=== PATIENT | female | born 1955 | race Hispanic/Latino ===

== ENCOUNTER → 2022-01-23 | Outpatient (CLI) | payer OTHER ==
[~2022-01-23] VITALS: Ht 152.4 cm; Wt 78.9 kg
[~2022-01-23] MED LIST: REGADENOSON 0.4 MG/5 ML PF SYG IVP SCH
== END | disposition home or self-care (01) ==
LOC: SHCH 08:31
PROVIDERS: ATTEND Internal Medicine
DX: R06.09 Other forms of dyspnea (principal)
CPT/HCPCS: 78452; 96374; 93017; J2785; A9500 ×2

== ENCOUNTER → 2022-10-25 | Outpatient (CLI) | payer OTHER | END | disposition home or self-care (01) | LOC: SLP 20:20 | PROVIDERS: ATTEND Student in an Organized Health Care Education/Training Program | DX: G47.33 Obstructive sleep apnea (adult) (pediatric) (principal) | CPT/HCPCS: 95810; 95811 ==

== ENCOUNTER → 2023-08-04 | Outpatient (CLI) | payer OTHER | END | disposition home or self-care (01) | LOC: SHCH 14:08 | PROVIDERS: ATTEND Student in an Organized Health Care Education/Training Program | DX: I73.9 Peripheral vascular disease, unspecified (principal) | CPT/HCPCS: 93925 ==

== ENCOUNTER → 2024-05-08 | Outpatient (CLI) | payer OTHER ==
[2024-05-08 12:25] LABS: HEMOGLOBIN A1C 7.7 % (4.0-6.0)
[2024-05-08 12:30] LABS: ALBUMIN 3.1 g/dL (3.5-5.0); BILIRUBIN,TOTAL 0.3 mg/dL (0.2-1.0); CREATININE 7.2 mg/dL (0.5-1.0); POTASSIUM 5.6 mmol/L (3.5-5.1); TOTAL PROTEIN, SERUM 7.4 g/dL (6.0-8.3)
== END | disposition home or self-care (01) ==
LOC: LAB 08:43
PROVIDERS: ATTEND Student in an Organized Health Care Education/Training Program
DX: I11.9 Hypertensive heart disease without heart failure (principal); E78.5 Hyperlipidemia, unspecified; Z79.899 Other long term (current) drug therapy
CPT/HCPCS: 36415; 80053; 80061; 83036

== ENCOUNTER 2025-03-02 21:01 | Emergency (ER) | payer OTHER ==
[~2025-03-02] VITALS: Ht 152.4 cm; Wt 68.5 kg
[~2025-03-02 21:01] MED LIST changes: +AMLO-258 PO; +CEFD300C3 PO; +Calcitriol 0.25MCG Cap PO; +FURO40SO4 PO; +Folic Acid/Vitamin B Comp W-C PO; +METF-444 PO; +METO-391 PO; -REGADENOSON 0.4 MG/5 ML PF SYG IVP SCH; +sevELAMer HCL 800 MG TAB PO
[2025-03-02 21:04] VITALS: TEMP 98.3
[2025-03-02 21:29] LABS: IMMATURE GRANULOCYTE ABSOLUTE 0.02 K/uL (0-1); NUCLEATED RED BLOOD CELLS 0.0 % (0.0-0.19); PLATELET COUNT (AUTO) 180 K/uL (130-400); RED BLOOD CELL COUNT(AUTO) 3.96 MIL/uL (4.00-5.50); RED CELL DISTRIBUTION WIDTH 14.6 % (11.0-15.5); WHITE BLOOD COUNT (AUTO) 6.9 K/uL (4.8-10.8)
--- NOTE | 2025-03-02 21:36 | ERN ---
ED Note History of Present Illness Stated Complaint: C/O DIZZINESS,WEAKNESS, BACK PAIN Chief Complaint: Dizzy/Light Headed Time Seen by MD: 21:12 Time Seen by Midlevel: 21:13 Dictation: 69-year-old female presents to the emergency department due to call us having generalized body weakness that began today at 4:40 p.m.. She states that this occurred while she was being connected for her dialysis. At this time, she denies having any chest pain, chest pressure, changes in vision, headache, na usea or vomiting. Patient states that it is a difficult sensation to explain. She states that it almost feels like if she feels anxious but denies having any history of anxiety. Upon initial evaluation, the patient presents with a normal neurological examination. Allergies: Coded Allergies: No Known Allergies (Verified Allergy, Unknown, 01/20/22) Emergency Care GRAB DRIVER: None Home Meds Active Scripts Cefdinir (Cefdinir) 300 Mg Capsule, 1 CAP PO BID for 5 Days, #10 CAP 0 Refills Prov:ALEJANDRA RODRIGEZ NP 12/24/24 Metformin HCl (Metformin HCl) 500 Mg Tablet, 1 TAB PO BID for 30 Days, #60 TAB 0 Refills Prov:ALEJANDRA RODRIGEZ NP 12/24/24 [sevELAMer HCL 800 MG TAB] 800 MG/TAB TABLET No Conflict Check, 1600 MG PO TIDMEALS for 30 Days, #90 MG 0 Refills Prov:ALEJANDRA RODRIGEZ NP 12/24/24 [Folic Acid/Vitamin B Comp W-C] 1 CAP TAB No Conflict Check, 1 CAP PO DAILY for 30 Days, #30 TAB 0 Refills Prov:ALEJANDRA RODRIGEZ NP 12/24/24 [Calcitriol 0.25MCG Cap] 0.25 MCG CAPSULE No Conflict Check, 0.25 MCG PO DAILY for 30 Days, #30 MCG 0 Refills Prov:ALEJANDRA RODRIGEZ NP 12/24/24 Reported Medications Furosemide (Furosemide) 40 Mg/4 Ml Solution, 40 MG PO DAILY, ML 12/15/24 Amlodipine Besylate (Amlodipine Besylate) 10 Mg Tablet, 10 MG PO DAILY for 30 Days, #30 TAB 0 Refills 12/15/24 Metoprolol Succinate (Metoprolol Succinate) 50 Mg Tab.er.24h, 50 MG PO DAILY, TAB 12/15/24 Past Medical History Past Medical History: Diabetes-Type II, High Cholesterol, Hypertension, Renal Failure Surgical History: Cholecystectomy, PSYCH History: no pertinent psych hx History: Not Applicable RN Note Reviewed/Agreed w/PFSH: Yes Review of System Dictation Neuro: Generalized weakness Psych: Anxious Initial Vital Sign VS Vital Signs Date Time Temp Pulse Resp B/P (MAP) Pulse Ox O2 Delivery O2 Flow Rate FiO2 03/02/25 21:04 98.2 60 20 181/53 98 Room Air Physical Exam Dictation General: awake, alert, NAD Head/Face: Normocephalic, atraumatic Eyes: PERRL, EOMI ENT: Oral mucosa moist Neck: Trachea midline, supple Cardiovascular: RRR, no edema Respiratory: Symmetrical, non-labored Abdomen: Soft, non-tender, non-distended, no guarding. Skin: Warm, dry, good turgor, no rash MS/Extremity: Pulses equal, no cyanosis, neurovascular intact, FROM Neuro: COAx4, GCS 15, steady gait, Psych: Normal behavior, mood, and affect normal Results (Laboratory/Radiology) Laboratory/Radiology Laboratory Tests Test 03/02/25 21:22 White Blood Count 6.9 K/uL (4.8-10.8) Red Blood Count 3.96 MIL/uL (4.00-5.50) L Hemoglobin 11.4 g/dL (12.0-16.0) L Hematocrit 34.4 % (36-48) L Mean Corpuscular Volume 86.9 fL (79-99) Mean Corpuscular Hemoglobin 28.8 pg (27.0-33.0) Mean Corpuscular Hemoglobin Concent 33.1 g/dL (32.0-36.0) Red Cell Distribution Width 14.6 % (11.0-15.5) Platelet Count 180 K/uL (130-400) Mean Platelet Volume 11.2 fL (7.5-10.5) H Immature Granulocyte % (Auto) 0.3 % (0-1) Neutrophils (%) (Auto) 58.4 % (40.0-77.0) Lymphocytes (%) (Auto) 32.6 % (21.0-51.0) Monocytes (%) (Auto) 5.2 % (3.0-13.0) Eosinophils (%) (Auto) 2.8 % (0.0-8.0) Basophils (%) (Auto) 0.7 % (0.0-5.0) Neutrophils # (Auto) 4.0 K/uL (1.8-7.7) Lymphocytes # (Auto) 2.2 K/uL (1.0-4.8) Monocytes # (Auto) 0.4 K/uL (0.1-1.0) Eosinophils # (Auto) 0.19 K/uL (0.00-0.70) Basophils # (Auto) 0.05 K/uL (0.00-0.20) Absolute Immature Granulocyte (auto 0.02 K/uL (0-1) Nucleated Red Blood Cells 0.0 % (0.0-0.19) Sodium Level 136 mmol/L (136-145) Potassium Level 3.7 mmol/L (3.5-5.1) Chloride Level 95 mmol/L (101-111) L Carbon Dioxide Level 31 mmol/L (21-32) Blood Urea Nitrogen 29 mg/dL (7-18) H Creatinine 3.6 mg/dL (0.5-1.0) H Glomerular Filtration Rate Calc 13 mL/min (>90) Random Glucose 168 mg/dL (70-105) H Total Calcium 9.2 mg/dL (8.5-10.1) Total Bilirubin 0.4 mg/dL (0.2-1.0) Aspartate Amino Transf (AST/SGOT) 15 U/L (10-37) Alanine Aminotransferase (ALT/SGPT) 22 U/L (12-78) Alkaline Phosphatase 104 U/L (50-136) Troponin I High Sensitivity 65 ng/L (4-50) *H Total Protein 7.5 g/dL (6.0-8.3) Albumin 3.6 g/dL (3.5-5.0) Labs Reviewed?: Yes EKG: (+) NSR EKG Comment: EKG done 03/02/2025 at 9:10 p.m.. Ventricular rate 62 beats per minute SD 161 MS QRS 94 MS QT 460 MS No STEMI. ED Course ED Course Orders Procedure Category Date Status Time 12 Lead Ekg Tracing- EKG 03/02/25 Logged Technical 21:13 Troponin I High LAB 03/02/25 Complete Sensitivity 21:12 Cbc With Differential LAB 03/02/25 Complete 21:12 Comprehensive LAB 03/02/25 Complete Metabolic Panel 21:12 Urinalysis Profile LAB 03/02/25 Logged 21:12 12 Lead Ekg Tracing- EKG 03/02/25 Logged Technical 21:12 Chest 1vw RAD 03/02/25 Taken 21:12 Hydroxyzine 25mg Tab PHA 03/02/25 In Process (Atarax 25mg Tab) 22:30 Current Medications Medications (Trade) Dose Ordered Sig/Shanika Route PRN Reason Start Time Stop Time Status Last Admin Dose Admin Hydroxyzine HCl (ATArax 25MG TAB) 25 mg ONCE ONCE PO 03/02/25 22:30 03/02/25 22:31 Vital Signs Date Time Temp Pulse Resp B/P (MAP) Pulse Ox O2 Delivery O2 Flow Rate FiO2 03/02/25 21:04 98.2 60 20 181/53 98 Room Air Medical Decision Making MDM MDM: Differential diagnosis: Generalized weakness, electrolyte imbalance, anxiety reaction. Rationale: Tests considered and ordered secondary to shared decision making include: Previous outside records reviewed: Old ER visits. Risk of complication and/or morbidity or mortality of patient management: None Medications-Per medication reconciliation Need for hospitalization: Patient does not meet criteria for hospitalization. Need for emergency major/minor surgery: No There are no social concerns with this patient. Prescription drug management Prescriptions will include symptomatic care Patient's prior external medical records from other ER visits were reviewed by me as indicated. Prior testing and results from previous visits were reviewed. Prior tests were taken into account with medical decision making and resource utilization, independent historian/historians were used to obtain complete medical history. I independently interpreted the test that were performed, results were reviewed by me and considered findings on radiology if ordered. Medical management and examination interpretation discussions were had by me with other qualified healthcare professionals as indicated for the patient's care. DX & DISP Disposition: Discharge Departure Impression: Primary Impression: Generalized weakness Additional Impression: Anxiety reaction Condition: Stable Referrals: BOBO TO JR, MD (PCP) Time of Disposition: 22:30 GALA GOLDBERG Mar 02, 2025 21:36
[2025-03-02 21:46] LABS: CREATININE 3.6 mg/dL (0.5-1.0); GLOMERULAR FILTR. RATE CALC 13.0 mL/min (>90); GLUCOSE,RANDOM 168.0 mg/dL (70-105); SODIUM SERUM 136.0 mmol/L (136-145); UREA NITROGEN, BLOOD 29.0 mg/dL (7-18)
[2025-03-02 21:50] LABS: ASPARTATE AMINOTRANSFERASE 15.0 U/L (10-37); TOTAL PROTEIN, SERUM 7.5 g/dL (6.0-8.3)
--- NOTE | 2025-03-02 22:53 | HMCIMG ---
EXAM: XR Chest, 1 AP View. CLINICAL HISTORY: 73-year-old female with shortness of breath. COMPARISON: XR chest dated 06/20/2024. FINDINGS: LUNGS: The lungs are clear. No consolidation. PLEURAL SPACES: No pleural effusion or pneumothorax. HEART: There is cardiomegaly. BONES: No acute osseous abnormality. MEDIASTINUM: There is suggestion of a continuous mediastinal sign. Consider a CT chest and abdomen for further workup if clinically indicated. IMPRESSION: 1. Suggestion of a continuous mediastinal sign, can be an indication of pneumomediastinum. Consider a CT chest and abdomen for further workup if clinically indicated. 2. Cardiomegaly, similar to prior XR chest dated 06/20/2024, 08:39 am. /[place]
--- NOTE | 2025-03-02 23:29 | NUR ---
PATIENT AT CT SCAN AT THIS TIME.
[2025-03-03 00:29] VITALS: BP 169/62; PULSE 58; RESP 18; O2SAT 99
--- NOTE | 2025-03-03 00:33 | HMCIMG ---
1. EXAM: CT Chest without IV contrast. CLINICAL HISTORY: Pain. TECHNIQUE: Thin-section axial CT through the thorax without intravenous contrast. Coronal, sagittal, and MIP reformation were generated on the same workstation. CT scan done according to ALARA (As Low as Reasonably Achievable). CONTRAST USED: None. COMPARISON: None provided. FINDINGS: 0.6 cm focal ground glass density nodule in the right lower lobe of the lung. Mild subsegmental atelectasis in the left lingula. The remaining lung chin are clear. No pleural effusion or pneumothorax. No pericardial effusion. Mild cardiomegaly. Scattered atherosclerotic wall calcifications in the thoracic aorta and coronary arteries. Right-sided central venous catheter in place with tip in the right atrium. Tracheal wall calcifications. No axillary, supraclavicular, or mediastinal lymphadenopathy. No focal thyroid abnormality. No acute or suspicious osseous abnormality. IMPRESSION: No acute process in the chest. 0.6 cm ground glass density nodule in the right lower lobe of the lung. Recommended follow-up CT chest at 12 months. 2. EXAM: CT Abdomen without IV contrast CLINICAL HISTORY: Pain. TECHNIQUE: Thin collimated axial CT images of the abdomen were obtained, with sagittal and coronal reformatted images also submitted. A CT scan is done according to ALARA (As Low As Reasonably Achievable). CONTRAST: None. COMPARISON: None. FINDINGS: No focal abnormality within the liver, pancreas, or adrenals. The gallbladder is not visualized and is likely surgically removed. Bilateral renal cortical scarring with vascular calcifications. Mild splenomegaly. Visualized large bowel reveals mild diverticulosis with no acute diverticulitis. There is no obvious bowel wall thickening. Bowel loops are normal in caliber without evidence of obstruction or ileus. Scattered atherosclerotic wall calcifications in the abdominal aorta. No lymphadenopathy. No free fluid. There is no acute osseous abnormality. Small umbilical hernia containing fat. IMPRESSIONS: No acute process in the abdomen. Bilateral renal cortical scarring with vascular calcifications. Mild splenomegaly. Visualized large bowel reveals mild diverticulosis with no acute diverticulitis. /[place]
[2025-03-03 00:41] LABS: APPEARANCE,URINE CLEAR (CLEAR); GLUCOSE, URINE (UA) TRACE mg/dL (NEGATIVE); LEUKOCYTE ESTERASE ,URINE NEGATIVE Leu/uL (NEGATIVE); NITRATE,URINE NEGATIVE (NEGATIVE); OCCULT BLOOD,URINE NEGATIVE (NEGATIVE)
[2025-03-03 00:47] LABS: ADD UA MICROSCOPIC YES
[2025-03-03 00:48] LABS: SQUAMOUS EPITHELIAL CELL,UR RARE /HPF (0-2)
--- NOTE | 2025-03-03 06:48 | EKG ---
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
== END 2025-03-03 00:53 | disposition home or self-care (01) ==
LOC: EDH 21:01
DX: R53.1 Weakness (principal); F41.1 Generalized anxiety disorder; E11.9 Type 2 diabetes mellitus without complications; E78.00 Pure hypercholesterolemia, unspecified; I10 Essential (primary) hypertension; Z79.84 Long term (current) use of oral hypoglycemic drugs; Z79.899 Other long term (current) drug therapy; Z90.49 Acquired absence of other specified parts of digestive tract
CPT/HCPCS: 36415; 71045; 71250; 74150; 80053; 81001; 84484; 85025; 93005; 99285

== ENCOUNTER 2025-04-10 17:25 | Emergency (ER) | payer OTHER ==
[~2025-04-10] VITALS: Ht 157.5 cm; Wt 68.5 kg
--- NOTE | 2025-04-10 17:38 | ERN ---
ED Note History of Present Illness Stated Complaint: RT HAND PAIN Chief Complaint: Hand Problem/Injury Time Seen by MD: 17:28 Dictation: IS A 69-YEAR-OLD FEMALE HERE COMING IN TODAY WITH COMPLAINTS OF LEFT HAND PAIN SINCE AN AV FISTULA WAS PLACED AT [facility] BY ON 12/25/2024. SHE STATES SHE HAS BEEN TO MULTIPLE HEMODIALYSIS SESSIONS AND THAT IS ALWAYS HAS BEEN CHECKED AND SHE HAS BEEN TOLD THAT THERE IS A GOOD THRILL GOOD BRUIT. WHEN SHE SPOKE TO HER NEPHROLOGISTS HE SAID SHE HAD TO GET A HOLD OF THE SURGEON. S HE STATES SHE HAS BEEN HAVING A DIFFICULT TIME GETTING A HOLD OF HIM. DISTAL NEUROVASCULAR CMS INTACT PALMAR CIRCULATION. CAP REFILL BRISK Allergies: Coded Allergies: No Known Allergies (Verified Allergy, Unknown, 01/20/22) Home Meds Active Scripts Cefdinir (Cefdinir) 300 Mg Capsule, 1 CAP PO BID for 5 Days, #10 CAP 0 Refills Prov:ALEJANDRA RODRIGEZ AGAP 12/24/24 Metformin HCl (Metformin HCl) 500 Mg Tablet, 1 TAB PO BID for 30 Days, #60 TAB 0 Refills Prov:[facility] 12/24/24 [sevELAMer HCL 800 MG TAB] 800 MG/TAB TABLET No Conflict Check, 1600 MG PO TIDMEALS for 30 Days, #90 MG 0 Refills Prov:ALEJANDRA RODRIGEZP 12/24/24 [Folic Acid/Vitamin B Comp W-C] 1 CAP TAB No Conflict Check, 1 CAP PO DAILY for 30 Days, #30 TAB 0 [facility] 12/24/24 [Calcitriol 0.25MCG Cap] 0.25 MCG CAPSULE No Conflict Check, 0.25 MCG PO DAILY for 30 Days, #30 MCG 0 Refills Prov:ALEJANDRA RODRIGEZ [facility] 12/24/24 Reported Medications Furosemide (Furosemide) 40 Mg/4 Ml Solution, 40 MG PO DAILY, ML 12/15/24 Amlodipine Besylate (Amlodipine Besylate) 10 Mg Tablet, 10 MG PO DAILY for 30 Days, #30 TAB 0 Refills 12/15/24 Metoprolol Succinate (Metoprolol Succinate) 50 Mg Tab.er.24h, 50 MG PO DAILY, TAB 6/23/25 Past Medical History Past Medical History: Diabetes-Type II, High Cholesterol, Hypertension, Renal Failure Surgical History: Cholecystectomy, History: Not Applicable RN Note Reviewed/Agreed w/PFSH: Yes Review of System Dictation CONSTITUTIONAL: NEGATIVE EXCEPT FOR HPI HEAD/FACE: NEGATIVE EXCEPT FOR HPI EENT: NEGATIVE EXCEPT FOR HPI RESPIRATORY: NEGATIVE EXCEPT FOR HPI GASTROINTESTINAL/ABDOMINAL: NEGATIVE EXCEPT FOR HPI GENITOURINARY: NEGATIVE EXCEPT FOR HPI MUSCULOSKELETAL: NEGATIVE EXCEPT FOR HPI CHRONIC LEFT HAND PAIN INTEGUMENTARY: NEGATIVE EXCEPT FOR HPI NEUROLOGICAL/PSYCH: NEGATIVE EXCEPT FOR HPI HEMATOLOGIC/LYMPHATIC: NEGATIVE EXCEPT FOR HPI ALL SYSTEMS NEGATIVE, EXCEPT NOTED ABOVE. 13 POINT REVIEW OF SYSTEMS ASSESSED AND ALL NEGATIVE EXCEPT FOR ABOVE. Initial Vital Sign VS Vital Signs Date Time Temp Pulse Resp B/P (MAP) Pulse Ox O2 Delivery O2 Flow Rate FiO2 04/10/25 17:27 98.6 66 20 133/52 99 Room Air Physical Exam Dictation VITAL SIGNS REVIEWED GENERAL APPEARANCE: ALERT, ORIENTED X 3, NO ACUTE DISTRESS, WELL DEVELOPED, NOURISHED. HEAD AND FACE: NON-TRAUMATIC. EYES: PERRL, PINK CONJUNCTIVAS, EYELID NO TRAUMA, ANTERIOR CHAMBER WITH ARCUS SENILIS. EARS: PINNAS INTACT AND NO SIGNS OF TRAUMA OR ERYTHEMA EAR CANALS CLEAR AND NO DISCHARGE TM NO ERYTHEMA NOSE: NO DISCHARGE, NO BLEEDING. OROPHARYNX: MOUTH NORMAL, TONGUE PINK, PHARYNX CLEAR,NO ERYTHEMA, TONSILS NO EXUDATES, NO ABSCESSES NOTED, MUCOUS MEMBRANE MOIST NECK: SUPPLE, NON-TENDER, NO THYROMEGALY, NO MASSES, NO JVD, NO BRUITS BREAST:DEFERRED CHEST:NO TENDERNESS, NO CREPITUS, NO PARADOXICAL MOVEMENT, NO RETRACTIONS LUNGS:CLEAR, WELL-VENTILATED, SYMMETRIC, NO RALES, NO WHEEZING, NO RHONCHI, NO STRIDOR, GOOD BREATH SOUNDS BILATERALLY HEART: REGULAR RATE, REGULAR RHYTHM, NO MURMUR, NO GALLOPS VASCULAR: NO PERIPHERAL EDEMA, LEFT ARM FISTULA WITH GOOD THRIL AND BRUIT. DISTAL NEUROVASCULAR CMS INTACT WITH BRISK CAP REFILL ABDOMEN: SOFT, POSITIVE BOWEL SOUNDS, NONDISTENDED, NO GUARDING, NONTENDER, NO REBOUND, NO MASSES NO HEPATOMEGALY, NO SPLENOMEGALY, NO BUNCH'S SIGN, NO HERNIAS. RECTAL: DEFERRED GENITAL: DEFERRED NEUROLOGICAL: NORMAL SPEECH, MOTOR FUNCTION INTACT, SENSORY FUNCTION INTACT MUSCULOSKELETAL: NECK NONTENDER, FULL RANGE OF MOTION, BACK NONTENDER, FULL RANGE OF MOTION, EXTREMITIES: NONTENDER, FULL RANGE OF MOTION SKIN: COLOR PINK, DRY, NO TURGOR, NO RASH, NO LACERATIONS, NO ABRASIONS, NO CONTUSIONS. LYMPHATIC: DEFERRED Results (Laboratory/Radiology) Laboratory/Radiology Laboratory Tests Test 04/10/25 18:33 White Blood Count 7.8 K/uL (4.8-10.8) Red Blood Count 4.00 MIL/uL (4.00-5.50) Hemoglobin 11.9 g/dL (12.0-16.0) L Hematocrit 35.6 % (36-48) L Mean Corpuscular Volume 89.0 fL (79-99) Mean Corpuscular Hemoglobin 29.8 pg (27.0-33.0) Mean Corpuscular Hemoglobin Concent 33.4 g/dL (32.0-36.0) Red Cell Distribution Width 13.9 % (11.0-15.5) Platelet Count 216 K/uL (130-400) Mean Platelet Volume 10.8 fL (7.5-10.5) H Immature Granulocyte % (Auto) 0.4 % (0-1) Neutrophils (%) (Auto) 75.6 % (40.0-77.0) Lymphocytes (%) (Auto) 15.7 % (21.0-51.0) L Monocytes (%) (Auto) 6.5 % (3.0-13.0) Eosinophils (%) (Auto) 1.4 % (0.0-8.0) Basophils (%) (Auto) 0.4 % (0.0-5.0) Neutrophils # (Auto) 5.9 K/uL (1.8-7.7) Lymphocytes # (Auto) 1.2 K/uL (1.0-4.8) Monocytes # (Auto) 0.5 K/uL (0.1-1.0) Eosinophils # (Auto) 0.11 K/uL (0.00-0.70) Basophils # (Auto) 0.03 K/uL (0.00-0.20) Absolute Immature Granulocyte (auto 0.03 K/uL (0-1) Nucleated Red Blood Cells 0.0 % (0.0-0.19) Sodium Level 137 mmol/L (136-145) Potassium Level 4.2 mmol/L (3.5-5.1) Chloride Level 95 mmol/L (101-111) L Carbon Dioxide Level 30 mmol/L (21-32) Blood Urea Nitrogen 26 mg/dL (7-18) H Creatinine 3.3 mg/dL (0.5-1.0) H Glomerular Filtration Rate Calc 15 mL/min (>90) Random Glucose 266 mg/dL (70-105) H Total Calcium 9.2 mg/dL (8.5-10.1) 1830/SPOKE WITH THE POCKETBOOK MAKER AND REVIEWED REPORT. PATIENT HAS BIPHASIC FLOW FROM THE AV FISTULA DOWN TO HER HAND. NO EVIDENCE OF A ARTERIAL [id number]/ 2044/LEFT HAND X-RAY NEGATIVE EXCEPT DEGENERATIVE CHANGE Labs Reviewed?: Yes EKG: (+) NSR EKG Comment: 1737/EKG NORMAL SINUS RHYTHM/HEART RATE 61/AXIS NORMAL/NO ECTOPY ED Course ED Course Orders Procedure Category Date Status Time Cbc With Differential LAB 04/10/25 Complete 17:33 12 Lead Ekg Tracing- EKG 04/10/25 Resulted Technical 17:33 Basic Metabolic Panel LAB 04/10/25 Complete 17:33 Us Arterial Unila Upp US 04/10/25 Resulted Ext Dupl 17:33 Acetaminophen With PHA 04/10/25 Complete Codeine (Tylenol-Code 20:00 Hand 3+Vws Lt RAD 04/10/25 Taken 19:49 Current Medications Medications (Trade) Dose Ordered Sig/Shanika Route PRN Reason Start Time Stop Time Status Last Admin Dose Admin Acetaminophen/ Codeine Phosphate (TYLenol-coDEINE TAB) 2 tab ONCE ONCE PO 04/10/25 20:00 04/10/25 20:01 DC Vital Signs Date Time Temp Pulse Resp B/P (MAP) Pulse Ox O2 Delivery O2 Flow Rate FiO2 04/10/25 17:27 98.6 66 20 133/52 99 Room Air 2044/PATIENT AWARE THAT HER LABS AND ULTRASOUND ARE NEGATIVE FOR A ARTERIAL STEAL. LEFT HAND X-RAY DEMONSTRATES DEGENERATIVE CHANGES ONLY PATIENT WILL BE DISCHARGED HOME TO FOLLOW UP WITH DR. BRENDEN LAW IN THE NEXT 2-3 DAYS FOR PAIN TO HIS Medical Decision Making MDM MDM: DIFFERENTIAL DIAGNOSIS: ARTERIAL STILL/ARTERIAL INSUFFICIENCY/ELECTROLYTE IMBALANCE/DEHYDRATION/FRACTURE/EKG CHANGES/ACS RATIONALE: TESTS CONSIDERED AND ORDERED SECONDARY TO SHARED DECISION MAKING INCLUDE: RADIOLOGY/LABS/EKG PREVIOUS OUTSIDE RECORDS REVIEWED: OLD ER VISITS. RISK OF COMPLICATION AND/OR MORBIDITY OR MORTALITY OF PATIENT MANAGEMENT: NONE MEDICATIONS-PER MEDICATION RECONCILIATION NEED FOR HOSPITALIZATION: PATIENT DOES NOT MEET CRITERIA FOR HOSPITALIZATION. NONE NEED FOR EMERGENCY MAJOR/MINOR SURGERY: NO THERE ARE NO SOCIAL CONCERNS WITH THIS PATIENT. PRESCRIPTION DRUG MANAGEMENT TYLENOL WITH CODEINE, REFERRAL TO DR. BRENDEN LAW PRESCRIPTIONS WILL INCLUDE SYMPTOMATIC CARE PATIENT'S PRIOR EXTERNAL MEDICAL RECORDS FROM OTHER ER VISITS WERE REVIEWED BY ME INDICATED. PRIOR TESTING AND RESULTS FROM PREVIOUS VISITS WERE REVIEWED. PRIOR TESTS WERE TAKEN INTO ACCOUNT WITH MEDICAL DECISION MAKING AND RESOURCE UTILIZATION, INDEPENDENT HISTORIAN/HISTORIANS WERE USED TO OBTAIN COMPLETE MEDICAL HISTORY. I INDEPENDENTLY INTERPRETED THE TEST THAT WERE PERFORMED, RESULTS WERE REVIEWED BY ME AND CONSIDERED FINDINGS ON RADIOLOGY IF ORDERED. MEDICAL MANAGEMENT AND EXAMINATION INTERPRETATION DISCUSSIONS WERE HAD BY ME WITH OTHER QUALIFIED HEALTHCARE PROFESSIONALS INDICATED FOR THE PATIENT'S CARE. DX & DISP Disposition: Discharge Departure Impression: Primary Impression: Chronic pain of left hand Additional Impressions: Anemia of chronic kidney failure, Hypochloremia, ESRD (end stage renal disease) on dialysis, Diabetes mellitus with hyperglycemia Condition: Stable Scripts Acetaminophen with Codeine (Acetaminophen-Cod #3 Tablet) 300 Mg-30 Mg Tablet 1 TAB PO Q4H PRN for SEVERE PAIN, #10 TAB 0 Refills Prov: DIKIRANBETH [facility] 04/10/25 Additional Instructions: Follow-up with primary care provider in 1 to 2 days. Take medications as directed here in the emergency room. Okay to continue home medications unless otherwise discussed during your visit in the emergency room today. Return to your nearest emergency room if symptoms worsen or if there is no improvement. Call 911 if you need immediate assistance. Take Tylenol or Motrin rega-yum-dkeegyz as needed and if no contraindications are present. Increase oral hydration. A wound culture or urine culture was ordered here in the emergency room department please follow-up with primary care provider and advise them to get repeat ports from our facility. If you had any Darío wrap/splints that were applied here, please do not remove them until you see your primary care or specialty. Diet and activity as tolerated. , take Tylenol with codeine as needed for severe pain. Call orthopedic surgeon for an appointment in the next 1-2 days Referrals: BOBO TO JR, MD (PCP) NORMA LAW Time of Disposition: 20:45 I have reviewed the case, and I agree with, Diagnosis and Plan BETH SILVAP Apr 10, 2025 17:38
--- NOTE | 2025-04-10 17:43 | EKG ---
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
[2025-04-10 18:41] LABS: IMMATURE GRANULOCYTE ABSOLUTE 0.03 K/uL (0-1); NUCLEATED RED BLOOD CELLS 0.0 % (0.0-0.19); PLATELET COUNT (AUTO) 216 K/uL (130-400); RED BLOOD CELL COUNT(AUTO) 4.00 MIL/uL (4.00-5.50); RED CELL DISTRIBUTION WIDTH 13.9 % (11.0-15.5); WHITE BLOOD COUNT (AUTO) 7.8 K/uL (4.8-10.8)
[2025-04-10 18:58] LABS: CREATININE 3.3 mg/dL (0.5-1.0); GLOMERULAR FILTR. RATE CALC 15.0 mL/min (>90); GLUCOSE,RANDOM 266.0 mg/dL (70-105); SODIUM SERUM 137.0 mmol/L (136-145); UREA NITROGEN, BLOOD 26.0 mg/dL (7-18)
[2025-04-10 20:00] VITALS: BP 145/65; PULSE 53; RESP 14; TEMP 98.7; O2SAT 100
--- NOTE | 2025-04-10 20:08 | HMCIMG ---
EXAMINATION: DUPLEX ULTRASOUND EXAMINATION OF THE LEFT UPPER EXTREMITY ARTERIES. CLINICAL HISTORY: Pain secondary to fistula. To rule out steal. COMPARISON: None. FINDINGS: Peak systolic velocities within the left upper extremity arteries are as follows: Subclavian artery: 254 cm/s. Axillary artery: Unable to image Brachial artery: 69 cm/s. Radial artery: 25 cm/s Ulnar artery: 46 cm/s. The left upper limb arteries demonstrate biphasic waveforms in all arteries other than the subvlavian artery which demonstrates monophasic waveforms. There is intimal wall thickening in left upper limb arteries. There is patent arterio-venous end to side fistula from the cephalic vein to brachial artery. IMPRESSION: Mild intimal wall thickening in the left upper limb arteries. The left upper limb arteries demonstrate triphasic waveforms. No flow limiting lesions. Patent brachio-cephalic arterio-venous fistula. /[place]
[2025-04-10] MEDS ORDERED: ACET-2079 PO (20:46)
--- NOTE | 2025-04-10 22:09 | HMCIMG ---
EXAM: CR Left Hand, 3 views. CLINICAL HISTORY: Pain. COMPARISON: None provided. FINDINGS: No acute fracture or aggressive appearing osseous lesion. Mild osteopenia. Mild osteoarthritis. Mild diffuse soft tissue swelling is evident. Atherosclerotic vascular calcifications. IMPRESSION: No acute bony abnormality is evident. Mild osteopenia. Mild osteoarthritis. Atherosclerotic vascular calcifications and diffuse soft tissue swelling. /[place]
== END 2025-04-10 20:56 | disposition home or self-care (01) ==
LOC: EDH 17:25
DX: M79.642 Pain in left hand (principal); G89.29 Other chronic pain; I12.0 Hypertensive chronic kidney disease with stage 5 chronic kidney disease or end stage renal disease; N18.6 End stage renal disease; E11.65 Type 2 diabetes mellitus with hyperglycemia; D63.1 Anemia in chronic kidney disease; E87.8 Other disorders of electrolyte and fluid balance, not elsewhere classified; E78.00 Pure hypercholesterolemia, unspecified; Z79.899 Other long term (current) drug therapy; Z79.84 Long term (current) use of oral hypoglycemic drugs; Z99.2 Dependence on renal dialysis; Z90.49 Acquired absence of other specified parts of digestive tract
CPT/HCPCS: 36415; 73130; 80048; 85025; 93005; 93931; 99284; 99285

== ENCOUNTER 2025-05-19 10:22 | Day surgery (SDC) | payer OTHER ==
[2025-05-18 10:00] LABS: NUCLEATED RED BLOOD CELLS 0.0 % (0.0-0.19); PLATELET COUNT (AUTO) 196.0 K/uL (130-400); RED BLOOD CELL COUNT(AUTO) 3.99 MIL/uL (4.00-5.50); RED CELL DISTRIBUTION WIDTH 13.6 % (11.0-15.5); WHITE BLOOD COUNT (AUTO) 7.4 K/uL (4.8-10.8)
[2025-05-18 10:10] LABS: CREATININE 4.5 mg/dL (0.5-1.0); GLOMERULAR FILTR. RATE CALC 10.0 mL/min (>90); GLUCOSE,RANDOM 190.0 mg/dL (70-105); SODIUM SERUM 134.0 mmol/L (136-145); UREA NITROGEN, BLOOD 32.0 mg/dL (7-18)
[2025-05-18 10:11] LABS: INR 1.01 (0.85-1.15)
[2025-05-18 10:14] VITALS: BP 127/54; PULSE 50; RESP 17; TEMP 98
--- NOTE | 2025-05-18 10:47 | EKG ---
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
--- NOTE | 2025-05-18 12:56 | NUR ---
REPORT REPORTED CHLORIDE TO DR HENRIQUEZ. OK TO PROCEED
--- NOTE | 2025-05-18 13:48 | HMCIMG ---
EXAM: CR CHEST, 1 VIEW CLINICAL HISTORY: 69-year-old female patient with pain. COMPARISON: Previous study dated 03/03/2025. TECHNIQUE: Single frontal radiograph of the chest was obtained. FINDINGS: Lines/Devices: The previously noted Right internal jugular dialysis catheter is not seen in today's study (removed). Lungs: Radiographically clear. No consolidation or ground-glass opacities are observed. There is no pleural effusion. There is no pneumothorax. Mediastinum and cardiovascular structures: Still noted prominent aortic knuckle with calcific atherosclerotic plaque. The cardiac silhouette is not enlarged. The central airway and mediastinal contours are unremarkable. Bones and soft tissues: Unremarkable. IMPRESSION: 1. No acute cardiopulmonary abnormality. 2. Interval removal of right internal jugular dialysis catheter. /[place]
[~2025-05-19] VITALS: Ht 152.4 cm; Wt 69.5 kg
[2025-05-19] VITALS (25 sets, daily range): BP systolic 126–154; BP diastolic 55–69; PULSE 56–73; RESP 14–18; TEMP 96.9–97.1
[~2025-05-19 10:22] MED LIST changes: +ACET-2079 PO
[2025-05-19 11:11] LABS: CREATININE 4.3 mg/dL (0.5-1.0); GLOMERULAR FILTR. RATE CALC 11.0 mL/min (>90); GLUCOSE,RANDOM 135.0 mg/dL (70-105); SODIUM SERUM 137.0 mmol/L (136-145); UREA NITROGEN, BLOOD 40.0 mg/dL (7-18)
[2025-05-19] MEDS ORDERED: PROMETHAZINE HCL 25 MG/ML 1ML AMPULE IM PRN (11:30)
[2025-05-19] MEDS: 0.9% NACL 500ML IV.SOLN 500 ML IV ONE (11:41)
[2025-05-19] MEDS ORDERED: INSU100V37 SQ (11:50)
[2025-05-19] MEDS ORDERED: LEVO50TA11 PO (11:50)
[2025-05-19] MEDS ORDERED: GABA300C PO (11:50)
[2025-05-19] MEDS ORDERED: ESCI-8 PO (11:50)
[2025-05-19] MEDS ORDERED: FOLI0.8T22 PO (11:50)
[2025-05-19] MEDS ORDERED: CINA30 PO (11:50)
[2025-05-19] MEDS ORDERED: METO-391 PO (11:50)
[2025-05-19] MEDS ORDERED: LIDOCAINE PF 100MG/5ML (2%) SYRINGE 5ML ONE (13:05)
[2025-05-19] MEDS ORDERED: MIDAZOLAM HCL 1 MG/ML 2ML VIAL ONE (13:06)
[2025-05-19] MEDS: HEParin-NS 1,000 UNIT/500 ML 500 ML IV ONE (13:29)
[2025-05-19] MEDS: LIDOCAINE HCL 1% 20 ML VIAL ONE (13:29)
[2025-05-19] MEDS ORDERED: PROTamine SULFate 10 MG/ML 25ML VIAL IV ONE (14:23)
--- NOTE | 2025-05-19 17:20 | NUR ---
FULL AND COMPLETE DISCHARGE INSTRUCTIONS GIVEN TO PATIENT AND FAMILY BOTH VERBALLY AND IN WRITING. VOICED UNDERSTANDING TO av fistula AND FOLLOW UP EXPECTIONS AND PRECAUTIONS. thrill and bruit intact. patient remains neurovascularly intact.PATIENT DENIES C/O PAIN OR NEED. PIV REMOVED WITH CATHETER TIP INTACT. W/C TO POV WITH FAMILY TO HOME SCHEDULED.
--- NOTE | 2025-05-19 20:34 | OP ---
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 PROCEDURE PERFORMED: Left upper extremity proximal arterialization using a reverse cryopreserved saphenous vein graft. OPERATING SURGEON: Ino Souza MD ANESTHESIOLOGIST: WANDA supervised by Aki Antunez MD TYPE OF ANESTHESIA: General endotracheal circus rider: Meena Castro. BRIEF HISTORY: The patient is a 69-year-old female who received a previous left upper extremity brachiocephalic AV fistula. The fistula matured well and developed steal-like syndrome, which was symptoms. The steal syndrome was confirmed with an angiogram of the left upper extremity. She presents now for a proximal arterialization of the left upper extremity to improve blood flow going to her forearm and hand. FINDINGS: The patient had a surprisingly small brachial artery (3-3.5 mm). The cryopreserved saphenous vein was approximately 4-4.5 mm. DESCRIPTION OF PROCEDURE: The patient was brought to the operating room and placed on the operating table in the supine position. She was given general endotracheal anesthesia. After placing lines and catheters, her left arm was prepped and draped in the usual sterile fashion. Her previous left antecubital fossa incisional scar was excised from the brachial artery distal to the left brachiocephalic AV fistula anastomosis was dissected out and surrounded with a vascular loop. Next, a longitudinal incision was made on the medial aspect of the arm and the brachial artery and the bicipital groove was dissected out and surrounded the vascular loop. The patient was then given 5000 units of heparin. A reverse cryopreserved saphenous vein graft was then tunneled between the 2 incisions, taking care not to twist the graft. After a 3-minute circulatory time and heparin, the proximal brachial artery was clamped proximal and distal to the target site, which was opened on its anterior wall with an 11-blade scalpel and Carlton scissors. The proximal end of the reverse cryopreserved saphenous vein graft was then anastomosed to the proximal brachial artery using a running 7-0 Prolene suture. The clamps were released and there was good flow into the graft, which was then cut to appropriate length to reach the brachial artery at the antecubital fossa. Clamps were then placed proximal and distal to the target side of the distal brachial artery, which was opened on its anterior wall with an 11-blade scalpel and Carlton scissors. The distal end of the reverse cryopreserved saphenous vein graft was then anastomosed to the side of the distal brachial artery using a running 7-0 Prolene suture. All clamps were released and there was a good Doppler signal in the brachial artery that was graft dependent distal to our anastomosis. The patient was then given mg of protamine. Both wounds were irrigated with antibiotic solution. Both wounds were closed with multiple layers of running Vicryl suture. Both skin incisions were closed using running intracuticular Monocryl sutures. The wounds were cleaned and dried covered with bandage and the patient was undraped, extubated and taken to the recovery room and Outpatient Surgery in stable condition. TID: [id number] RECEIPT: [id number] cc: Meena Castro
== END 2025-05-19 17:30 | disposition home or self-care (01) ==
LOC: DAH 10:22
PROVIDERS: ATTEND Thoracic Surgery (Cardiothoracic Vascular Surgery)
DX: T82.898A Other specified complication of vascular prosthetic devices, implants and grafts, initial encounter (principal); I12.0 Hypertensive chronic kidney disease with stage 5 chronic kidney disease or end stage renal disease; N18.6 End stage renal disease; Z99.2 Dependence on renal dialysis; E78.5 Hyperlipidemia, unspecified; Z90.49 Acquired absence of other specified parts of digestive tract; Z79.899 Other long term (current) drug therapy; Y83.8 Other surgical procedures as the cause of abnormal reaction of the patient, or of later complication, without mention of misadventure at the time of the procedure
CPT/HCPCS: 80048 ×2; 85027; 85610; 85730; 86850; 86900; 86901; 36415 ×2; 71045; 93005; 36838; 82948 ×2; A6260; A4663; J7030; J7040; J3010 ×2; J0690 ×2; J3490 ×3; J2003; J2250; J2704 ×2; J0665; J1644; A4649 ×2; C1768; C1713 ×2; A4930 ×2; A4215; A4213; A4222; A4221; A4216; A4450; J2720; A4223 ×2; A4600